=== PATIENT | female | born 2000 | race Caucasian/White ===

== ENCOUNTER 2019-06-11 06:50 | Day surgery (SDC) | payer BC ==
[2019-06-10 15:13] VITALS: BMI 23.3
[2019-06-11] MEDS ORDERED: Fentanyl 100 MCG/2 ML VIAL ONE ×2 (08:59→09:27)
[2019-06-11] MEDS ORDERED: Morphine 4 MG/ML VIAL ONE (09:00)
[2019-06-11 09:01] LABS: BHCG - Serum Negative (NEGATIVE); Pregs Control Background? CLEAR/WHITE (CLR/WHITE); Pregs Control Bar Appear? YES (CONTROL BAR)
[2019-06-11] MEDS ORDERED: Dexamethasone 20 MG/5 ML VIAL ONE (09:20)
[2019-06-11] MEDS ORDERED: Succinylcholine Chloride 20 MG/ML 10 ml SYRINGE FS ONE (09:20)
[2019-06-11] MEDS ORDERED: Lidocaine 1% PF 5 ML VIAL ONE (09:20)
[2019-06-11] MEDS ORDERED: PROPOFOL 200 MG/20 ML VIAL ONE (09:20)
[2019-06-11] MEDS ORDERED: Ondansetron PF 4 MG/2 ML Vial ONE (09:20)
--- NOTE | 2019-06-12 10:26 | OP ---
DATE OF PROCEDURE: 06/11/2019 PREOPERATIVE DIAGNOSES: 1. Chronic adenotonsillitis. 2. Adenotonsillar hypertrophy. POSTOPERATIVE DIAGNOSES: 1. Chronic adenotonsillitis. 2. Adenotonsillar hypertrophy. PROCEDURES PERFORMED: Tonsillectomy and adenoidectomy. ESTIMATED BLOOD LOSS: 0 mL. COMPLICATIONS: None. ANESTHESIA: GETA. PROCEDURE IN DETAIL: After consent was obtained, the patient was identified, brought to the operating room, and placed on the operating table in the supine position. General endotracheal anesthesia and intravenous access were obtained and we proceeded with positioning the patient for oropharyngeal surgery. Oropharyngeal exposure was obtained with a Gonzales-Ronen mouth gag after a head drape was placed and secured with a towel clip. The Gonzales-Ronen mouth gag was then suspended from the Nickerson tray and palatal elevation was achieved with a red rubber catheter. The right tonsil was addressed first. We used a curved Allis to grasp the tonsil and retract it medially as an anterior pillar incision was made. The retrotonsillar fascial plane was then established and blunt dissection was performed with the suction cautery. Blood vessels were anticipated, identified, and cauterized as they were encountered. Ultimately, dissection was carried to the posterior tonsillar pillar mucosa which was incised hemostatically, as well as the base of tongue connection. The tonsil was then passed off as a specimen and bleeding points within the tonsillar bed were cauterized under direct visualization. We subsequently turned our attention to the contralateral side, where using a similar technique, a near identical procedure was performed. Again, the tonsil was grasped and retracted medially with a curved Allis. The retrotonsillar fascial plane was established and while the anterior pillar was retracted medially. The hemostatic blunt dissection of the tonsil with a suction cautery was performed with blood vessels anticipated, identified, and cauterized as they were encountered. Again, dissection continued to the base of tongue and posterior tonsillar pillar mucosa which was incised in a hemostatic fashion. The tonsillar beds were then carefully inspected and bleeding points were identified and cauterized with a suction cautery. After this portion of the procedure, hemostasis was completely obtained. Under direct mirror visualization, we visualized the adenoid pad. Under direct mirror visualization, we removed the bulk of the adenoid tissue with the adenoid curette. We then packed the nasopharynx for an appropriate period of time with [id number] tonsillar sponges. After a period of observation, we removed the pack. Under indirect mirror visualization, we obtained hemostasis and vaporization of residual adenoid tissue with electrocautery. The patient's oral cavity was copiously irrigated with iced saline and subsequently suctioned. After completion of the procedure, the nasal cavity and oropharynx were irrigated and suctioned as were the gastric contents. The patient was then awakened and transferred to the recovery room where the patient remained in stable condition prior to discharge to Day Stay. Job ID: [id number]
== END 2019-06-11 11:45 | disposition home or self-care (01) ==
LOC: SDC 06:50
PROVIDERS: ATTEND Otolaryngology Plastic Surgery within the Head & Neck
PROC: 0CTPXZZ Resection of Tonsils, External Approach (ICD-10-PCS; principal; 2019-06-11)
PROC: 0CTQXZZ Resection of Adenoids, External Approach (ICD-10-PCS; principal; 2019-06-11)
DX: J35.03 Chronic tonsillitis and adenoiditis (principal)
CPT/HCPCS: 36415; 84703; 85014; 88304; J0131; J1100; J2001; J2270; J2405; J2704; J3010